=== PATIENT | male | born 1990 | race Two or more races ===

== ENCOUNTER 2022-08-21 19:20 | Emergency (ER) | payer OTHER ==
[~2022-08-21] VITALS: Ht 175.3 cm; Wt 83.9 kg
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
[2022-08-21] MEDS ORDERED: LIDOCAINE HCL/PF 1% 30 ML VIAL TP ONE (20:30)
--- NOTE | 2022-08-21 22:50 | NUR ---
Patient discharged to [facility] in stable condition. Written and verbal after care instructions given. Patient verbalizes understanding of instruction.
[2022-08-22 01:19] VITALS: BP 138/86
== END 2022-08-22 01:19 ==
LOC: ER 19:51
DX: S01.81XA Laceration without foreign body of other part of head, initial encounter (principal); S01.21XA Laceration without foreign body of nose, initial encounter; I10 Essential (primary) hypertension; Y08.09XA Assault by strike by other specified type of sport equipment, initial encounter; Y93.89 Activity, other specified; Y92.89 Other specified places as the place of occurrence of the external cause; Y99.8 Other external cause status
CPT/HCPCS: 99284; 70450; 71045; 93005; 73080; 70486; 73110 ×2; J3490